=== PATIENT | male | born 1975 | race African-American/Black ===

== ENCOUNTER 2017-05-25 13:47 | Emergency (ER) | payer OTHER ==
[~2017-05-25] VITALS: Ht 180.3 cm; Wt 101.4 kg
[2017-05-25] MEDS ORDERED: SKELAXIN800 MG PO (16:48)
[2017-05-25] MEDS ORDERED: MOTRIN800 MG PO (16:48)
[2017-05-25] MEDS ORDERED: LIDODERM 5% P1 PATCH TD (16:48)
[2017-05-25 17:28] VITALS: BP 149/93
== END 2017-05-25 17:29 | disposition home or self-care (01) ==
LOC: EME 13:47
DX: S39.012A Strain of muscle, fascia and tendon of lower back, initial encounter (principal); X50.0XXA Overexertion from strenuous movement or load, initial encounter; Y99.0 Civilian activity done for income or pay
CPT/HCPCS: 99281; 99284; J1885

== ENCOUNTER 2017-06-07 07:32 | Emergency (ER) | payer OTHER ==
[~2017-06-07] VITALS: Ht 180.3 cm; Wt 103.1 kg
[~2017-06-07 07:32] MED LIST: LIDODERM 5% P1 PATCH TD; MOTRIN800 MG PO; SKELAXIN800 MG PO
[2017-06-07] MEDS ORDERED: FLEXERIL5 MG PO (08:54)
[2017-06-07] MEDS ORDERED: MOTRIN800 MG PO (08:54)
[2017-06-07 09:17] VITALS: BP 133/99
== END 2017-06-07 09:18 | disposition home or self-care (01) ==
LOC: EME 07:32
DX: S39.012A Strain of muscle, fascia and tendon of lower back, initial encounter (principal); W20.8XXD Other cause of strike by thrown, projected or falling object, subsequent encounter; F17.200 Nicotine dependence, unspecified, uncomplicated
CPT/HCPCS: 72100; 99281; 99284; J1885

== ENCOUNTER 2017-09-19 02:08 | Emergency (ER) | payer OTHER ==
[~2017-09-19] VITALS: Ht 182.9 cm; Wt 101.0 kg
[~2017-09-19 02:08] MED LIST changes: +FLEXERIL5 MG PO
[2017-09-19 02:35] LABS: BASOPHIL (%) 0.3 % (0-1); EOSINOPHIL (%) 1.7 % (0-5); EOSINOPHIL COUNT 0.1 K/uL (0-0.3); HEMATOCRIT 39.4 % (38.0-50.0); HEMOGLOBIN 13.6 G/DL (12.5-16.6); IMMATURE GRANULOCYTE (%) 0.4 % (0.0-0.7); LYMPHOCYTE (%) 27.8 % (15-42); LYMPHOCYTE COUNT 2.2 K/uL (1.0-2.8); MCH 33.3 PG (29.0-34.0); MCHC 34.5 G/DL (30.0-36.0); MCV 96.3 FL (86-99); MONOCYTE (%) 6.7 % (3-12); MONOCYTE COUNT 0.5 K/uL (0-0.8); NEUTROPHIL (%) 63.1 % (45-76); NEUTROPHIL COUNT 4.9 K/uL (1.8-6.4); PLATELET COUNT 249 K/uL (156-360); RBC DIS.WIDTH-CV 12.7 % (11.8-14.6); RBC DIS.WIDTH-SD 44.8 % (39-53); RED BLOOD COUNT 4.09 M/uL (4.00-5.50); WHITE BLOOD COUNT 7.7 K/uL (4.1-10.2)
[2017-09-19 02:48] LABS: INTER. NORMALIZED RATIO 1.1
[2017-09-19 02:51] LABS: PTT 42.9 SEC (25-37)
[2017-09-19 02:52] LABS: ALBUMIN 4.4 g/dL (3.2-4.8); CHLORIDE 114 mEq/L (99-109); POTASSIUM 3.8 mEq/L (3.7-5.4); SODIUM 145 mEq/L (136-147)
[2017-09-19 02:54] LABS: GLUCOSE 107 mg/dL (70-99)
[2017-09-19 02:55] LABS: TOTAL PROTEIN 7.1 g/dL (6.4-8.3)
[2017-09-19 02:56] LABS: TOTAL BILIRUBIN 0.3 mg/dL (0.0-1.0)
[2017-09-19 02:57] LABS: SERUM ETHYL ALCOHOL 155 mg/dL
[2017-09-19 02:58] LABS: ALKALINE PHOSPHATASE 67 IU/L (3-129); CREATININE 1.2 mg/dL (0.6-1.3); GFR ESTIMATE (CALCULATED) > 59 mL/min/ (58.99-99999)
[2017-09-19 02:59] LABS: UREA NITROGEN (BUN) 11 mg/dL (9-23)
[2017-09-19 03:00] LABS: AST (GOT) 20 IU/L (2-34)
[2017-09-19 03:01] LABS: ALT (GPT) 25 IU/L (3-49)
[2017-09-19 04:00] VITALS: BP 124/88
[2017-09-19 04:49] LABS: APPEARANCE CLEAR ((CLEAR)); BILIRUBIN NEGATIVE; BLOOD NEGATIVE; COLOR YELLOW ((YELLOW)); GLUCOSE (STRIP) NEGATIVE; KETONES NEGATIVE; LEUKOCYTES NEGATIVE; NITRITE NEGATIVE; PROTEIN (STRIP) NEGATIVE; SPECIFIC GRAVITY 1.013 (1.000-1.030); UCUL ADDED? NO; UROBILINOGEN 0.2 MG/DL (0.2-1.0)
[2017-09-19 05:25] LABS: AMPHETAMINE NEGATIVE (500 ng/mL); BARBITURATES NEGATIVE (200 ng/mL); BENZODIAZEPINES NEGATIVE (150 ng/mL); BUPRENORPHINE NEGATIVE (10 ng/mL); COCAINE NEGATIVE (150 ng/mL); METHADONE NEGATIVE (200 ng/mL); METHAMPHETAMINE NEGATIVE (500 ng/mL); OPIATES (MORPHINE) NEGATIVE (100 ng/mL); OXYCODONE NEGATIVE (100 ng/mL); PHENCYCLIDINE NEGATIVE (25 ng/mL); PROPOXYPHENE NEGATIVE (300 ng/mL); THC CANNABINOIDS PRESUMPTIVE POSITIVE (50 ng/mL); TRICYCLIC ANTIDEPRESSANTS NEGATIVE (300 ng/mL)
== END 2017-09-19 04:36 | disposition left against medical advice (07) ==
LOC: EME → EDBD 02:08 → EME 02:08
PROVIDERS: Emergency Medicine
DX: F10.129 Alcohol abuse with intoxication, unspecified (principal); Y90.6 Blood alcohol level of 120-199 mg/100 ml; F17.200 Nicotine dependence, unspecified, uncomplicated
CPT/HCPCS: 70450; 80053; 81003; 84999; 85025; 85610; 85730; 93005; 99281; 99284; G0480

== ENCOUNTER 2017-10-04 11:05 | Emergency (ER) | payer OTHER ==
[~2017-10-04] VITALS: Ht 185.4 cm; Wt 106.8 kg
[2017-10-04 12:38] LABS: BASOPHIL (%) 0.2 % (0-1); CHLORIDE 107 mEq/L (99-109); EOSINOPHIL (%) 0.7 % (0-5); EOSINOPHIL COUNT 0.1 K/uL (0-0.3); HEMOGLOBIN 16.1 G/DL (12.5-16.6); IMMATURE GRANULOCYTE (%) 0.6 % (0.0-0.7); LYMPHOCYTE (%) 7.2 % (15-42); LYMPHOCYTE COUNT 0.9 K/uL (1.0-2.8); MCH 33.9 PG (29.0-34.0); MCV 96.8 FL (86-99); MONOCYTE (%) 6.6 % (3-12); MONOCYTE COUNT 0.8 K/uL (0-0.8); NEUTROPHIL (%) 84.7 % (45-76); NEUTROPHIL COUNT 10.6 K/uL (1.8-6.4); PLATELET COUNT 253 K/uL (156-360); RBC DIS.WIDTH-CV 12.5 % (11.8-14.6); RBC DIS.WIDTH-SD 44.8 % (39-53); RED BLOOD COUNT 4.75 M/uL (4.00-5.50); WHITE BLOOD COUNT 12.5 K/uL (4.1-10.2)
[2017-10-04 12:39] LABS: POTASSIUM 4.5 mEq/L (3.7-5.4); SODIUM 142 mEq/L (136-147)
[2017-10-04 12:40] LABS: GLUCOSE 98 mg/dL (70-99); INTER. NORMALIZED RATIO 1.1
[2017-10-04 12:42] LABS: PTT 37.1 SEC (25-37)
[2017-10-04 12:44] LABS: CREATININE 1.4 mg/dL (0.6-1.3); GFR ESTIMATE (CALCULATED) > 59 mL/min/ (58.99-99999); TROP-I INTERPRETATION NEGATIVE; TROPONIN-I < 0.01 ng/mL (0.0-0.30)
[2017-10-04 12:45] LABS: UREA NITROGEN (BUN) 12 mg/dL (9-23)
[2017-10-04 15:12] VITALS: BP 134/94
== END 2017-10-04 15:31 | disposition home or self-care (01) ==
LOC: EME 11:05
PROVIDERS: Emergency Medicine
DX: R55 Syncope and collapse (principal); R06.02 Shortness of breath; E78.5 Hyperlipidemia, unspecified; I10 Essential (primary) hypertension; F17.200 Nicotine dependence, unspecified, uncomplicated
CPT/HCPCS: 71045; 71275; 80048; 84484; 85025; 85379; 85610; 85730; 93005; 99281; 99284; J7030